=== PATIENT | female | born 1945 | race Caucasian/White ===

== ENCOUNTER 2022-10-15 13:46 | Inpatient (IN) | payer MEDICAID ==
[~2022-10-15] VITALS: Ht 157.5 cm; Wt 90.7 kg
[2022-10-15 13:58] VITALS: BP_SYST 118
--- NOTE | 2022-10-15 14:38 | NUR ---
To Xray via bryanna.
--- NOTE | 2022-10-15 14:58 | NUR ---
Back from xray via gurney to bed 4. Labs drawn.
[2022-10-15 15:20] LABS: BASOPHILS % (AUTO) 0.3 % (0.0-2.0); HEMATOCRIT 42.5 % (36-48); HEMOGLOBIN 14.5 g/dL (12.0-16.0); LYMPHOCYTES # (AUTO) 0.6 K/uL (1.0-5.5); LYMPHOCYTES % (AUTO) 8.2 % (20.5-51.5); MEAN CORPUSCULAR HEMOGLOBIN 28 pg (27-31); MEAN CORPUSCULAR HGB CONC 34 % (32-36); MEAN CORPUSCULAR VOLUME 82 fL (79.0-98.0); MONOCYTES # (AUTO) 0.8 K/uL (0.0-1.0); NEUTROPHILS # (AUTO) 6.4 K/uL (1.8-7.7); NEUTROPHILS % (AUTO) 81.5 % (40.0-70.0); PLATELET COUNT (AUTO) 194 K/uL (130-430); RED BLOOD CELL COUNT(AUTO) 5.16 MIL/uL (4.2-6.2); RED CELL DISTRIBUTION WIDTH 13.8 % (9.0-15.0); WHITE BLOOD COUNT (AUTO) 7.9 K/uL (4.8-10.8)
[2022-10-15 15:22] LABS: ANION GAP 9 (5-15); CALCIUM 9.6 mg/dL (8.4-11.0); CHLORIDE 97 mmol/L (98-107); CREATININE 1.07 mg/dL (0.55-1.30); GLUCOSE 168 mg/dL (70-99); UREA NITROGEN, BLOOD 18 mg/dL (8-21)
--- NOTE | 2022-10-15 15:22 | NUR ---
76 years old female biba from home s/p syncope denies pain safety maintained will continue to monitor.
[2022-10-15 15:36] LABS: ALANINE AMINOTRANSFERASE 31 U/L (12-78); ALBUMIN 3.8 g/dL (3.4-4.8); ASPARTATE AMINOTRANSFERASE 36 U/L (10-37); TOTAL BILIRUBIN 0.5 mg/dL (0.0-1.0)
[2022-10-15 16:10] LABS: CKMB RELATIVE INDEX 0.1 (0.0-2.9); CREATINE KINASE MB 0.3 ng/mL (0-3.6)
[2022-10-15] MEDS ORDERED: MELO-89 (19:02)
[2022-10-15] MEDS ORDERED: ASPI-989 (19:02)
[2022-10-15] MEDS ORDERED: FURO40TA5 (19:02)
[2022-10-15] MEDS ORDERED: MONT-40 (19:02)
[2022-10-15] MEDS ORDERED: CELE100C98 (19:02)
--- NOTE | 2022-10-15 19:10 | NUR ---
PATIENT WITH COVID POSITIVE, AWAITING FOR AUTHORIZATION FOR ADMIT.
--- NOTE | 2022-10-15 19:54 | NUR ---
Admit bed requested Patient will be admitted to care of . Admitted to TELE unit. Diagnosis [facility] Inpatient (Yes or No) YES Observation (Yes or No) NO Orientation concerns or request close to nursing station (Yes or No) NO Covid Status POSTIVE On vent or bipap NO Isolation requirements YES Needs a sitter NO From Home (Yes or if No enter name of facility) HOME Requires Dialysis (Yes or No) NO Med Rec Completed (Yes of No) YES
[2022-10-15 20:38] VITALS: BP_SYST 139
--- NOTE | 2022-10-15 20:55 | NUR ---
Patient sleeping comfortably in bed with safety precautions in place and connected to monitor. Patient's daughter at bedside. Nad noted at this time.
[2022-10-15] MEDS ORDERED: ACETAMINOPHEN 325 MG TABLET PO PRN (21:30)
[2022-10-15] MEDS ORDERED: HYDROcodone/ACETAMIN 5-325 MG TAB (NORCO/ VICODIN) PO PRN (21:30)
[2022-10-15] MEDS ORDERED: HYDROcodone/ACETAMIN 10-325 MG TAB PO PRN (21:30)
[2022-10-15] MEDS ORDERED: NALOXONE HCL 0.4 MG/ML AMP (NARCAN) IVP PRN ×2 (21:30)
[2022-10-15] MEDS ORDERED: ONDANSETRON HCL 4 MG/2 ML VIAL IVP PRN (21:30)
[2022-10-15] MEDS ORDERED: NORMAL SALINE 5 ML DISP.SYRIN IVF SCH ×2 (22:00)
--- NOTE | 2022-10-15 22:10 | NUR ---
Patient does not wish to proceed with medical care recommended by Sean. Patient given information related to possible complications, up to and including , which could occur as a result of leaving hospital at this time. Patient verbalizes understanding of risks involved leaving against medical advice. Patient has signed AMA form. Attempted to call Dr Estrada at this time to notify of patient wanting to sign out AMA. Waiting for call back at this time; will reattempt call again. Patient accompanied by daughter at this time.
--- NOTE | 2022-10-15 22:24 | NUR ---
NOTIFIED DR. HA PT SIGNED OUT AMA
[2022-10-16] MEDS ORDERED: MELOXICAM 7.5 MG TABLET PO SCH (09:00)
[2022-10-16] MEDS ORDERED: MONTELUKAST 10 MG TABLET PO SCH (09:00)
[2022-10-16] MEDS ORDERED: ASPIRIN 325 MG TABLET PO SCH (09:00)
[2022-10-16] MEDS ORDERED: CELECOXIB 100 MG CAPSULE PO SCH (09:00)
[2022-10-16] MEDS ORDERED: FUROSEMIDE 40 MG TABLET PO SCH (09:00)
== END 2022-10-15 22:20 | disposition left against medical advice (07) | DRG 53 ==
LOC: SED 13:46 → STU 19:56
PROVIDERS: ADMIT Preventive Medicine Preventive Medicine/Occupational Environmental Medicine; ATTEND Preventive Medicine Preventive Medicine/Occupational Environmental Medicine
DX: G40.909 Epilepsy, unspecified, not intractable, without status epilepticus (principal); U07.1 COVID-19; E87.20 Acidosis, unspecified; I10 Essential (primary) hypertension; E87.5 Hyperkalemia; M19.90 Unspecified osteoarthritis, unspecified site; Z53.29 Procedure and treatment not carried out because of patient's decision for other reasons; R73.9 Hyperglycemia, unspecified
CPT/HCPCS: 36415; 70450-TC; 70486-TC; 71045; 76376; 80053; 82550; 82553; 83605; 84484; 85025; 93005; 99285; G0378